=== PATIENT | male | born 1960 | race Caucasian/White ===

== ENCOUNTER 2019-10-30 02:06 | Inpatient (IN) ==
[2019-10-30] MEDS ORDERED: ONDANSETRON 4 MG/2 ML VIAL IV PRN (03:24)
[2019-10-30] MEDS ORDERED: MAGNESIUM SULF RIDER 2 GM in PREMIX 1 EACH IV PRN (03:24)
[2019-10-30] MEDS ORDERED: ALUMINUM/MAGNES/SIMETH MAX STR 30 ML UDCUP PO PRN (03:24)
[2019-10-30] MEDS ORDERED: MAGNESIUM SULF RIDER 4 GM in PREMIX 1 EACH IV PRN (03:24)
[2019-10-30] MEDS ORDERED: SIMETHICONE CHEW 125 MG TABLET PO PRN (03:24)
[2019-10-30] MEDS: ENOXAPARIN 100 MG/ML SYRINGE SUBCUT SCH ×2 (06:28→17:57)
[2019-10-30 08:49] LABS: Basophils # 0.1 10*3/uL (0.0-0.2); Basophils % 0.7 % (0.0-0.8); Eosinophils # 0.2 10*3/uL (0.0-0.87); Eosinophils % 2.4 % (0.00-10.9); Hematocrit 44.4 VOL% (42.0-52.0); Hemoglobin 14.2 GM/DL (14.0-18.0); Immature Granulocytes % 0.7 %; Immature Granulocytes Absolute 0.06 #; Lymphocytes # 2.7 10*3/uL (1.4-4.0); Lymphocytes % 30.1 % (21.2-54.2); Mean Corpuscular Volume 83.3 FL (87-102); Mean Platelet Volume 10.3 FL (9.6-12.0); Monocytes % 6.8 % (1.7-12.7); Neutrophils % 59.3 % (38.7-73.9); Platelet Count 216 T/CUMM (130-400); Red Blood Count 5.33 MC/CUMM (3.8-5.5); Red Cell Distribution Width 16.3 % (9.3-17.3); White Blood Count 8.8 T/CUMM (4-12)
[2019-10-30] MEDS ORDERED: ENOXAPARIN 40 MG/0.4 ML SYRINGE SUBCUT SCH (09:00)
[2019-10-30 09:05] LABS: Calcium 8.8 MG/DL (8.5-10.1); Osmolality,Calculated 276.8 MOS/KG (273-304)
[2019-10-30] MEDS: allopurinoL 100 MG TABLET PO SCH (09:27)
[2019-10-30] MEDS: PANTOPRAZOLE 40 MG TABLET PO SCH (09:27)
[2019-10-30] MEDS: predniSONE 10 MG TABLET PO SCH (09:27)
[2019-10-30] MEDS: LOSARTAN 50 MG TABLET PO SCH (09:27)
[2019-10-30] MEDS: FUROSEMIDE 40 MG/4 ML VIAL IV SCH ×2 (09:28→17:33)
[2019-10-30] MEDS: EZETIMIBE 10 MG TABLET PO SCH (09:28)
[2019-10-30] MEDS ORDERED: TICAGRELOR 90 MG TABLET PO ONE (12:17)
[2019-10-30] MEDS: ASPIRIN EC 81 MG TABLET PO SCH (13:04)
[2019-10-30] MEDS: POTASSIUM CHLORIDE 20 MEQ TABLET PO PRN ×2 (17:57→21:08)
[2019-10-30] MEDS ORDERED: carvediloL 3.125 MG TABLET PO SCH (21:00)
[2019-10-30] MEDS ORDERED: SIMVASTATIN 10 MG TABLET PO SCH (21:00)
[2019-10-30] MEDS: carvediloL 6.25 MG TABLET PO SCH (21:08)
[2019-10-30] MEDS: ROSUVASTATIN 20 MG TABLET PO SCH (21:08)
[2019-10-30] MEDS: TICAGRELOR 90 MG TABLET PO SCH (21:08)
[2019-10-31] MEDS: ENOXAPARIN 100 MG/ML SYRINGE SUBCUT SCH ×2 (06:25→19:13)
[2019-10-31 06:35] LABS: Albumin 3.5 G/DL (3.4-5.0); Calcium 9.1 MG/DL (8.5-10.1); Osmolality,Calculated 281.7 MOS/KG (273-304); Total Protein 7.4 G/DL (6.4-8.3)
[2019-10-31 06:58] LABS: Risk Ratio 2.93; VLDL CHOLESTEROL 26.4 MG/DL
[2019-10-31] MEDS: carvediloL 6.25 MG TABLET PO SCH ×2 (09:47→21:40)
[2019-10-31] MEDS: TICAGRELOR 90 MG TABLET PO SCH ×2 (09:47→21:40)
[2019-10-31] MEDS: EZETIMIBE 10 MG TABLET PO SCH (09:47)
[2019-10-31] MEDS: FUROSEMIDE 40 MG/4 ML VIAL IV SCH ×2 (09:47→16:22)
[2019-10-31] MEDS: predniSONE 10 MG TABLET PO SCH (09:48)
[2019-10-31] MEDS: allopurinoL 100 MG TABLET PO SCH (09:48)
[2019-10-31] MEDS: ASPIRIN EC 81 MG TABLET PO SCH (09:48)
[2019-10-31] MEDS: LOSARTAN 50 MG TABLET PO SCH (09:48)
[2019-10-31] MEDS: PANTOPRAZOLE 40 MG TABLET PO SCH (09:51)
[2019-10-31] MEDS ORDERED: POTASSIUM CHLORIDE RIDER 10 MEQ in PREMIX 1 EACH IV PRN (10:18)
[2019-10-31] MEDS: ROSUVASTATIN 20 MG TABLET PO SCH (21:40)
[2019-11-01 04:34] LABS: Basophils # 0.1 10*3/uL (0.0-0.2); Basophils % 0.6 % (0.0-0.8); Eosinophils # 0.1 10*3/uL (0.0-0.87); Eosinophils % 1.3 % (0.00-10.9); Hematocrit 49.7 VOL% (42.0-52.0); Hemoglobin 15.8 GM/DL (14.0-18.0); Immature Granulocytes % 0.7 %; Immature Granulocytes Absolute 0.07 #; Lymphocytes # 2.3 10*3/uL (1.4-4.0); Lymphocytes % 23.9 % (21.2-54.2); Mean Corpuscular HGB Conc 31.8 GM/DL (32-36); Mean Corpuscular Volume 83.1 FL (87-102); Mean Platelet Volume 10.5 FL (9.6-12.0); Monocytes % 5.7 % (1.7-12.7); Neutrophils % 67.8 % (38.7-73.9); Platelet Count 224 T/CUMM (130-400); Red Blood Count 5.98 MC/CUMM (3.8-5.5); Red Cell Distribution Width 16.8 % (9.3-17.3); White Blood Count 9.7 T/CUMM (4-12)
[2019-11-01 04:40] LABS: PT Patient Result 10.7 SECS (9.6-12.2)
[2019-11-01 04:58] LABS: Calcium 8.8 MG/DL (8.5-10.1)
[2019-11-01] MEDS ORDERED: DIAZEPAM 5 MG TABLET PO ONE (06:00)
[2019-11-01] MEDS ORDERED: diphenhydrAMINE CAP 25 MG CAPSULE PO ONE (06:00)
[2019-11-01] MEDS: TICAGRELOR 90 MG TABLET PO SCH ×2 (08:42→22:18)
[2019-11-01] MEDS: predniSONE 10 MG TABLET PO SCH (08:42)
[2019-11-01] MEDS: ASPIRIN EC 81 MG TABLET PO SCH (08:42)
[2019-11-01] MEDS: EZETIMIBE 10 MG TABLET PO SCH (08:42)
[2019-11-01] MEDS: carvediloL 6.25 MG TABLET PO SCH ×2 (08:42→22:18)
[2019-11-01] MEDS: FUROSEMIDE 40 MG/4 ML VIAL IV SCH ×2 (08:42→16:57)
[2019-11-01] MEDS: allopurinoL 100 MG TABLET PO SCH (08:42)
[2019-11-01] MEDS: LOSARTAN 50 MG TABLET PO SCH (08:42)
[2019-11-01] MEDS: PANTOPRAZOLE 40 MG TABLET PO SCH (08:42)
[2019-11-01] MEDS: ENOXAPARIN 100 MG/ML SYRINGE SUBCUT SCH ×2 (08:46→18:22)
[2019-11-01] MEDS ORDERED: LIDOCAINE 1% 20 ML VIAL ONE (09:42)
[2019-11-01] MEDS ORDERED: HEPARIN/NACL 0.9% 2 UNITS/ML 1,000 ML IV ONE (09:42)
[2019-11-01] MEDS: SODIUM CHLORIDE 0.9% 1,000 ML IV SCH ×2 (09:56→17:02)
[2019-11-01] MEDS ORDERED: HYDROmorphone 2 MG/1 ML VIAL ONE (11:05)
[2019-11-01] MEDS ORDERED: MIDAZOLAM 2 MG/2 ML VIAL ONE (11:05)
[2019-11-01] MEDS ORDERED: diphenhydrAMINE 50 MG/1 ML VIAL ONE (11:37)
[2019-11-01] MEDS: ROSUVASTATIN 20 MG TABLET PO SCH (22:18)
[2019-11-02 05:03] LABS: Calcium 8.8 MG/DL (8.5-10.1); Osmolality,Calculated 286.8 MOS/KG (273-304)
[2019-11-02] MEDS: ENOXAPARIN 100 MG/ML SYRINGE SUBCUT SCH (06:41)
[2019-11-02] MEDS: SODIUM CHLORIDE 0.9% 1,000 ML IV SCH ×2 (08:30→13:19)
[2019-11-02] MEDS: FUROSEMIDE 40 MG/4 ML VIAL IV SCH ×2 (08:42→16:50)
[2019-11-02] MEDS: ASPIRIN EC 81 MG TABLET PO SCH (08:42)
[2019-11-02] MEDS: allopurinoL 100 MG TABLET PO SCH (08:42)
[2019-11-02] MEDS: PANTOPRAZOLE 40 MG TABLET PO SCH (08:42)
[2019-11-02] MEDS: carvediloL 6.25 MG TABLET PO SCH ×2 (08:42→22:45)
[2019-11-02] MEDS: LOSARTAN 50 MG TABLET PO SCH (08:42)
[2019-11-02] MEDS: EZETIMIBE 10 MG TABLET PO SCH (08:42)
[2019-11-02] MEDS: predniSONE 10 MG TABLET PO SCH (08:42)
[2019-11-02] MEDS: ENOXAPARIN 30 MG/0.3 ML SYRINGE SUBCUT SCH (08:59)
[2019-11-02] MEDS: TICAGRELOR 90 MG TABLET PO SCH ×2 (08:59→22:45)
[2019-11-02] MEDS: ACETAMINOPHEN 325 MG TABLET PO PRN (14:00)
[2019-11-02] MEDS: ROSUVASTATIN 20 MG TABLET PO SCH (22:45)
[2019-11-03 09:31] LABS: Calcium 9.1 MG/DL (8.5-10.1); Osmolality,Calculated 284.4 MOS/KG (273-304)
[2019-11-03] MEDS: LOSARTAN 50 MG TABLET PO SCH (10:57)
[2019-11-03] MEDS: predniSONE 10 MG TABLET PO SCH (10:57)
[2019-11-03] MEDS: allopurinoL 100 MG TABLET PO SCH (10:57)
[2019-11-03] MEDS: carvediloL 6.25 MG TABLET PO SCH ×2 (10:57→21:39)
[2019-11-03] MEDS: ASPIRIN EC 81 MG TABLET PO SCH (10:58)
[2019-11-03] MEDS: FUROSEMIDE 40 MG/4 ML VIAL IV SCH ×2 (10:58→16:48)
[2019-11-03] MEDS: ENOXAPARIN 30 MG/0.3 ML SYRINGE SUBCUT SCH (10:58)
[2019-11-03] MEDS: EZETIMIBE 10 MG TABLET PO SCH (10:58)
[2019-11-03] MEDS: TICAGRELOR 90 MG TABLET PO SCH ×2 (10:58→21:39)
[2019-11-03] MEDS: PANTOPRAZOLE 40 MG TABLET PO SCH (10:58)
[2019-11-03] MEDS: SODIUM CHLORIDE 0.9% 1,000 ML IV SCH ×2 (11:03→15:06)
[2019-11-03] MEDS: ROSUVASTATIN 20 MG TABLET PO SCH (21:39)
[2019-11-03] MEDS: ACETAMINOPHEN 325 MG TABLET PO PRN (23:57)
[2019-11-04 04:25] LABS: Basophils # 0.1 10*3/uL (0.0-0.2); Basophils % 0.5 % (0.0-0.8); Eosinophils # 0.2 10*3/uL (0.0-0.87); Eosinophils % 1.6 % (0.00-10.9); Hematocrit 41.8 VOL% (42.0-52.0); Hemoglobin 13.5 GM/DL (14.0-18.0); Immature Granulocytes % 0.6 %; Immature Granulocytes Absolute 0.07 #; Lymphocytes # 2.2 10*3/uL (1.4-4.0); Lymphocytes % 19.9 % (21.2-54.2); Mean Corpuscular HGB Conc 32.3 GM/DL (32-36); Mean Corpuscular Volume 82.4 FL (87-102); Mean Platelet Volume 10.5 FL (9.6-12.0); Monocytes % 6.7 % (1.7-12.7); Neutrophils % 70.7 % (38.7-73.9); Platelet Count 167 T/CUMM (130-400); Red Blood Count 5.07 MC/CUMM (3.8-5.5); Red Cell Distribution Width 16.2 % (9.3-17.3); White Blood Count 10.9 T/CUMM (4-12)
[2019-11-04 04:39] LABS: Osmolality,Calculated 293.2 MOS/KG (273-304)
[2019-11-04] MEDS ORDERED: diphenhydrAMINE CAP 25 MG CAPSULE PO ONE (06:00)
[2019-11-04] MEDS ORDERED: DIAZEPAM 5 MG TABLET PO ONE (06:00)
[2019-11-04] MEDS: SODIUM CHLORIDE 0.9% 1,000 ML IV SCH ×3 (09:52→19:49)
[2019-11-04] MEDS: allopurinoL 100 MG TABLET PO SCH (09:52)
[2019-11-04] MEDS: PANTOPRAZOLE 40 MG TABLET PO SCH (09:54)
[2019-11-04] MEDS: EZETIMIBE 10 MG TABLET PO SCH (09:54)
[2019-11-04] MEDS: ENOXAPARIN 30 MG/0.3 ML SYRINGE SUBCUT SCH (09:54)
[2019-11-04] MEDS: predniSONE 10 MG TABLET PO SCH (09:54)
[2019-11-04] MEDS: ASPIRIN EC 81 MG TABLET PO SCH (09:54)
[2019-11-04] MEDS: carvediloL 6.25 MG TABLET PO SCH ×2 (09:54→21:05)
[2019-11-04] MEDS: TICAGRELOR 90 MG TABLET PO SCH ×2 (09:54→21:05)
[2019-11-04] MEDS: ROSUVASTATIN 20 MG TABLET PO SCH (21:04)
[2019-11-05 05:26] LABS: Basophils % 0.4 % (0.0-0.8); Eosinophils # 0.1 10*3/uL (0.0-0.87); Eosinophils % 1.7 % (0.00-10.9); Hematocrit 35.6 VOL% (42.0-52.0); Immature Granulocytes % 0.7 %; Immature Granulocytes Absolute 0.05 #; Lymphocytes # 1.6 10*3/uL (1.4-4.0); Lymphocytes % 20.9 % (21.2-54.2); Mean Corpuscular HGB Conc 33.7 GM/DL (32-36); Mean Corpuscular Volume 80.2 FL (87-102); Mean Platelet Volume 11.2 FL (9.6-12.0); Monocytes % 5.7 % (1.7-12.7); Neutrophils % 70.6 % (38.7-73.9); Platelet Count 146 T/CUMM (130-400); Red Blood Count 4.44 MC/CUMM (3.8-5.5); Red Cell Distribution Width 15.9 % (9.3-17.3); White Blood Count 7.7 T/CUMM (4-12)
[2019-11-05] MEDS: SODIUM CHLORIDE 0.9% 1,000 ML IV SCH (05:50)
[2019-11-05 05:52] LABS: Calcium 8.6 MG/DL (8.5-10.1); Osmolality,Calculated 293.7 MOS/KG (273-304)
[2019-11-05] MEDS: allopurinoL 100 MG TABLET PO SCH (08:42)
[2019-11-05] MEDS: carvediloL 6.25 MG TABLET PO SCH (08:42)
[2019-11-05] MEDS: EZETIMIBE 10 MG TABLET PO SCH (08:42)
[2019-11-05] MEDS: PANTOPRAZOLE 40 MG TABLET PO SCH (08:42)
[2019-11-05] MEDS: predniSONE 10 MG TABLET PO SCH (08:42)
[2019-11-05] MEDS: TICAGRELOR 90 MG TABLET PO SCH (08:42)
[2019-11-05] MEDS: ASPIRIN EC 81 MG TABLET PO SCH (08:42)
[2019-11-05] MEDS: ENOXAPARIN 30 MG/0.3 ML SYRINGE SUBCUT SCH (08:43)
[2019-11-05 12:03] VITALS: BP 108/58
== END 2019-11-05 15:40 | disposition home or self-care (01) | DRG 286 ==
LOC: SUATTDRO 03:03 → N.TELES 03:03
PROVIDERS: ADMIT Internal Medicine; ATTEND Internal Medicine

== ENCOUNTER 2019-11-18 05:55 | Inpatient (IN) ==
[2019-11-18] MEDS ORDERED: diphenhydrAMINE CAP 25 MG CAPSULE PO ONE (06:00)
[2019-11-18] MEDS ORDERED: DIAZEPAM 5 MG TABLET PO ONE (06:00)
[2019-11-18] MEDS ORDERED: ASPIRIN 325 MG TABLET PO ONE (06:00)
[2019-11-18] MEDS: SODIUM CHLORIDE 0.9% 1,000 ML IV SCH ×2 (07:10→15:01)
[2019-11-18] MEDS ORDERED: DIAZEPAM 5 MG TABLET ONE (07:37)
[2019-11-18] MEDS ORDERED: ASPIRIN 325 MG TABLET ONE (07:37)
[2019-11-18] MEDS ORDERED: diphenhydrAMINE CAP 25 MG CAPSULE ONE (07:38)
[2019-11-18] MEDS ORDERED: LIDOCAINE 1% 20 ML VIAL ONE (10:42)
[2019-11-18] MEDS ORDERED: HEPARIN/NACL 0.9% 2 UNITS/ML 1,000 ML IV ONE (10:42)
[2019-11-18] MEDS ORDERED: HEPARIN/NACL 0.9% 2 UNITS/ML 500 ML IV ONE ×2 (10:46→11:48)
[2019-11-18] MEDS ORDERED: HEPARIN 5,000 UNIT/1 ML VIAL ONE (11:32)
[2019-11-18] MEDS ORDERED: HEPARIN 10,000 UNIT/10 ML VIAL ONE (13:03)
[2019-11-18] MEDS ORDERED: SEVOFLURANE 1 UNIT/15 MINUTE INH ONE (13:03)
[2019-11-18] MEDS ORDERED: propofoL 200 MG/20 ML VIAL IV ONE (13:03)
[2019-11-18] MEDS ORDERED: fentaNYL 100 MCG/2 ML VIAL ONE (13:03)
[2019-11-18] MEDS ORDERED: LIDOCAINE 2% 5 ML VIAL ONE (13:03)
[2019-11-18] MEDS ORDERED: MIDAZOLAM 2 MG/2 ML VIAL ONE (13:04)
[2019-11-18] MEDS ORDERED: ePHEDrine 50 MG/ML AMP ONE (13:04)
[2019-11-18] MEDS ORDERED: GLYCOPYRROLATE 0.4 MG/2 ML VIAL ONE (13:04)
[2019-11-18] MEDS ORDERED: TICAGRELOR 90 MG TABLET ONE (13:04)
[2019-11-18] MEDS ORDERED: PHENYLEPHRINE 1 MG/10 ML SYRINGE IV ONE (13:04)
[2019-11-18] MEDS ORDERED: fentaNYL 100 MCG/2 ML VIAL IV PRN (16:26)
[2019-11-18] MEDS ORDERED: ZALEPLON 5 MG CAPSULE PO PRN (16:40)
[2019-11-18] MEDS ORDERED: NITROGLYCERIN SL 0.4 MG TABLET SL PRN (16:40)
[2019-11-18] MEDS ORDERED: ONDANSETRON 4 MG/2 ML VIAL IV PRN (16:40)
[2019-11-18] MEDS: carvediloL 6.25 MG TABLET PO SCH (22:29)
[2019-11-18] MEDS: TICAGRELOR 90 MG TABLET PO SCH (22:29)
[2019-11-19 04:29] LABS: Basophils # 0.1 10*3/uL (0.0-0.2); Basophils % 0.7 % (0.0-0.8); Eosinophils # 0.1 10*3/uL (0.0-0.87); Eosinophils % 1.7 % (0.00-10.9); Hematocrit 35.3 VOL% (42.0-52.0); Hemoglobin 11.5 GM/DL (14.0-18.0); Immature Granulocytes Absolute 0.08 #; Lymphocytes # 1.6 10*3/uL (1.4-4.0); Lymphocytes % 18.8 % (21.2-54.2); Mean Corpuscular HGB Conc 32.6 GM/DL (32-36); Mean Corpuscular Volume 84.9 FL (87-102); Mean Platelet Volume 10.1 FL (9.6-12.0); Monocytes % 5.8 % (1.7-12.7); Platelet Count 194 T/CUMM (130-400); Red Blood Count 4.16 MC/CUMM (3.8-5.5); Red Cell Distribution Width 17.6 % (9.3-17.3); White Blood Count 8.3 T/CUMM (4-12)
[2019-11-19 04:59] LABS: Calcium 8.1 MG/DL (8.5-10.1); Osmolality,Calculated 272.8 MOS/KG (273-304)
[2019-11-19] MEDS: carvediloL 6.25 MG TABLET PO SCH (08:42)
[2019-11-19] MEDS: TICAGRELOR 90 MG TABLET PO SCH (08:42)
[2019-11-19] MEDS ORDERED: allopurinoL 300 MG TABLET PO SCH (09:00)
[2019-11-19] MEDS ORDERED: EZETIMIBE 10 MG TABLET PO SCH (09:00)
[2019-11-19] MEDS ORDERED: MULTIVITAMIN (CENTRUM) TABLET PO SCH (09:00)
[2019-11-19] MEDS ORDERED: ASPIRIN EC 81 MG TABLET PO SCH (09:00)
[2019-11-19] MEDS ORDERED: ROSUVASTATIN 20 MG TABLET PO SCH (09:00)
[2019-11-19] MEDS ORDERED: predniSONE 10 MG TABLET PO SCH (09:00)
[2019-11-19 09:02] VITALS: BP 125/58
[2019-11-19] MEDS ORDERED: CLOPIDOGREL 300 MG TABLET PO ONE (09:24)
[2019-11-20] MEDS ORDERED: CLOPIDOGREL 75 MG TABLET PO SCH (09:00)
== END 2019-11-19 10:23 | disposition home or self-care (01) | DRG 215 ==
LOC: N.CL 05:55 → N.CC 06:00 → EDSTATUS 09:00 → N.CC 13:36
PROVIDERS: ADMIT Internal Medicine Cardiovascular Disease; ATTEND Internal Medicine Cardiovascular Disease
PROC: CLCCHCL (ICD-10-PCS; 2019-11-18 09:15)